=== PATIENT | female | born 1975 | race Two or more races ===

== ENCOUNTER 2025-02-11 17:39 | Inpatient (IN) | payer MEDICAID, SELFPAY ==
[2025-02-11 18:03] VITALS: BP 112/77; PULSE 97; RESP 18; TEMP 37.1; O2SAT 99; BMI 38.2
--- NOTE | 2025-02-11 18:05 | XR_ITS ---
Examination: CT brain head without contrast. 2-D sagittal coronal reconstructions Date and time of exam:February 11, 2025 1851 hrs. Indications: Onset headaches vomiting today CTDI: vol (mGy):48.3 DLP: (mGycm):921 Technique: Multiple CT axial sections of the brain have been obtained, 5 mm slice thickness. Contrast has not been administered. 2-D sagittal, coronal reconstructions have been obtained Low dose protocols were performed. One or more of the following dose reduction techniques were used; automated exposure control, adjustment of the mA and/or KV according to patient size, use of iterative reconstruction technique. Findings: No significant ventricular enlargement. Intra-axial or extra-axial hemorrhage density is not seen. No mass effect or midline shift Basal cisterns are not remarkable. Fourth ventricle is midline. Cranial vault intact. Impression: Negative for acute hemorrhage, mass effect or midline shift Advise clinical correlation follow-up accordingly
--- NOTE | 2025-02-11 18:05 | XR_ITS ---
Examination: CT abdomen and pelvis without contrast. Coronal 3-D reconstructions. Sagittal 2-D reconstructions. Date and time of exam:February 11, 2025 1858 hrs. Indications: Onset right flank pain today, history kidney stones CTDI: vol (mGy): 16.1 DLP: (mGycm): 979 Technique: Axial images of the abdomen have been obtained, 3 mm slice thickness Intravenous contrast material has not been administered. Low dose protocols were performed. One or more of the following dose reduction techniques were used; automated exposure control, adjustment of the mA and/or KV according to patient size, use of iterative reconstruction technique. Findings: No focal liver or splenic lesion No gallstones No pancreatic or adrenal mass Multiple bilateral renal calculi, the largest 7 mm in the lower pole right kidney Significant scarring both kidneys, mild wall thickening right renal pelvis suspected urinary tract infection No ureteral calculi Normal appendix No bowel obstruction No diverticulitis Anteverted uterus with multiple uterine fundal masses No bladder mass or bladder calculi Fat-containing left femoral hernia Impression: Multiple bilateral nonobstructing renal calculi, no hydronephrosis or ureteral calculi Significant scarring both kidneys Suspicious for right urinary tract infection Normal appendix Multiple uterine fundal masses, recommend pelvic sonography follow-up
--- NOTE | 2025-02-11 18:06 | PD.EDRME ---
Rapid Medical Screening Exam E Arrival date/time: 02/11/25 17:39 49-year-old female presents to the emergency department for complaint of headache and abdominal pain patient reports that she has surgery scheduled for next month for her kidney stones Chief Complaint: Headache Vital signs: Vital Signs Temperature 98.8 F 02/11/25 18:03 Pulse Rate 97 02/11/25 18:03 Respiratory Rate 18 02/11/25 18:03 Blood Pressure 112/77 02/11/25 18:03 Pulse Oximetry (%) 99 02/11/25 18:03 Oxygen Delivery Method Room Air 02/11/25 18:03
[2025-02-11 18:55] LABS: Collection Type, Urine Clean Catch; WBC,Urine 0 /hpf (0-5)
[2025-02-11 19:02] LABS: Basophils # (Auto) 0.1 Thou/mm3 (0.0-0.2); Basophils % (Auto) 1 % (0-2.5); Eosinophils # (Auto) 0.2 Thou/mm3 (0.0-0.5); Eosinophils % (Auto) 1 % (0-10); Hematocrit 27.5 % (36.0-46.0); Immature Granulocytes % (Auto) 1 % (0-0); Immature Granulocytes Auto 0.08 Thou/mm3 (0.00-0.00); Lymphocytes # (Auto) 1.9 Thou/mm3 (1.0-4.8); Lymphocytes % (Auto) 11 % (10-50); Mean Corpuscular HGB Conc 30.2 g/dl (31.0-37.0); Mean Corpuscular Hemoglobin 21.7 pg (25.0-35.0); Mean Corpuscular Volume 72 fL (80-100); Monocytes # (Auto) 0.7 Thou/mm3 (0.0-0.8); Monocytes % (Auto) 5 % (0-12); Neutrophils # (Auto) 13.4 Thou/mm3 (1.8-7.7); Neutrophils % (Auto) 82 % (37-80); Nucleated Red Blood Cell % 0 /100 WBC (0); Platelet Count 471 Thou/mm3 (140-440); Red Blood Count 3.83 Miln/mm3 (4.00-5.20); White Blood Count 16.4 Thou/mm3 (3.6-11.0)
[2025-02-11 19:24] LABS: Hemoglobin 8.3 g/dL (12.0-16.0)
[2025-02-11 19:42] LABS: Bilirubin,Urine Negative (Negative); Blood,Urine 2+ (Negative); Clarity,Urine Clear (Clear/Hazy); Color,Urine Lt-Yellow (Lt Yel-Yel); Culture Indicated,Urine Not Indicated; Glucose, Urine 4+ (Negative); Ketones,Urine Negative (Negative); Leukocyte Esterase,Urine Negative (Negative); Nitrite,Urine Negative (Negative); Protein,Urine Negative (Neg - Trace); RBC,Urine 3 /hpf (0-3); Specific Gravity,Urine 1.025 (1.001-1.035); Squamous Epithelial Cell,Urine 3 /hpf (0-5); Urobilinogen,Urine Negative mg/dL (0.0-1.0)
[2025-02-11 19:50] LABS: Alanine Aminotransferase 11 U/L (10-49); Albumin, Serum 4.3 gm/dL (3.5-5.0); Albumin/Globulin Ratio 1.2 (1.2-2.2); Alkaline Phosphatase 105 U/L (46-116); Anion Gap 8 (7-16); Aspartate Amino Transferase 12 U/L (0-34); BUN/Creatinine Ratio 16 Ratio (12-20); Bilirubin,Total 0.3 mg/dL (0.3-1.2); Blood Urea Nitrogen 21 mg/dL (9-23); Calcium 9.4 mg/dL (8.3-10.6); Calcium (Corrected) 9.4 mg/dL (8.5-10.1); Carbon Dioxide 24.8 mMol/L (20.0-31.0); Chloride 96 mMol/L (98-107); Creatinine (Component) 1.3 mg/dL (0.6-1.3); Estimated Creatinine Clearance 58.4 mL/min (>60); Globulin 3.6 gm/dL (2.3-3.5); Glucose 332 mg/dL (74-106); Lipase 66 U/L (12-53); Osmolality,Calculated 274 (275-295); Potassium 4.6 mMol/L (3.4-5.1); Sodium 129 mMol/L (136-145); Total Protein 7.9 gm/dL (5.7-8.2); eGFR 50 See Note
--- NOTE | 2025-02-11 21:45 | PD.EDRME ---
Rapid Medical Screening Exam RME Arrival date/time: 02/11/25 17:39 02/11/25 17:39 49-year-old female presents to the emergency department for complaint of headache and abdominal pain patient reports that she has surgery scheduled for next month for her kidney stones Chief Complaint: Headache Time Seen by Provider: 02/11/25 21:45 Vital signs: Vital Signs Temperature 98.8 F 02/11/25 18:03 Pulse Rate 97 02/11/25 18:03 Respiratory Rate 18 02/11/25 18:03 Blood Pressure 112/77 02/11/25 18:03 Pulse Oximetry (%) 99 02/11/25 18:03 Oxygen Delivery Method Room Air 02/11/25 18:03 RME Narrative: 02/11/25 17:39 49-year-old female presents to the emergency department for complaint of headache and abdominal pain patient reports that she has surgery scheduled for next month for her kidney stones
--- NOTE | 2025-02-11 23:35 | PD.EDHA ---
ED Headache RME/HPI General Chief Complaint: Headache Stated Complaint: HEAD AND RIGHT KIDNEY PAIN X AM Time Seen by Provider: 02/11/25 21:45 Arrival date/time: 02/11/25 17:39 RME / HPI RME / HPI Narrative: 02/11/25 17:39 49-year-old female presents to the emergency department for complaint of headache and abdominal pain patient reports that she has surgery scheduled for next month for her kidney stones ------- Dr. Morales?s Main ED Evaluation: 49yo female presents to the ED for a chief complaint of intermittent diffuse upper abdominal pain x 1 week. Patient states her pain became significantly worse today at 1600, describing her pain as burning and throbbing in nature. Patient reports associated dizziness, seeing spots , 6 emetic episodes, and a headache. She denies any diarrhea, fever, chills or any otehr associated symptoms. She denies any history of similar symptoms. PSH includes . Patient states she is scheduled for a procedure with Dr. Noonan next month to have her kidney stones removed. Related Data Allergies Allergy/AdvReac Type Severity Reaction Status Date / Time aspirin Allergy Intermediate RASH Verified 02/11/25 17:41 Review of Systems Review of Systems Systems Reviewed: All systems reviewed, normal except as documented Past Medical History Social History SMOKING STATUS: Never smoker ED Exam Narrative Physical exam: GENERAL APPEARANCE: alert and oriented x 4, well-developed, well-nourished, no acute distress VITALS: All vitals were reviewed and the pulse ox is 99% on room air, which is normal according to my interpretation. HEENT: Normocephalic, atraumatic; pupils equal, round, reactive to light; EOMI; mucous membranes pink, moist; oropharynx clear NECK: Supple LUNGS: CTABL; no wheezes, no rales, no rhonchi HEART: Regular rate, regular rhythm; normal S1, S2; no murmurs ABDOMEN: non distended; normal BS; soft, [id number] epigastric and RUQ tenderness, positive Tran sign, no rigidity, no guarding, no rebound; no masses, no organomegaly, no hernia BACK: no CVA tenderness EXTREMITIES: atraumatic; no edema NEUROLOGIC: awake; alert and oriented x4; cranial nerves II-XII grossly intact; no focal sensory or motor deficits PSYCHIATRIC: appropriate mood and affect SKIN: warm, dry, normal color; no rashes Course Quality Measures none Orders Category Date Time Status [employer] Q4H START 00 Care 02/11/25 23:38 Active Continuous Pulse Oximetry NOW Care 02/11/25 23:38 Completed EKG (ED ONLY) *Do not use* NOW Care 02/11/25 23:40 Completed IV [Insert IV] STAT Care 02/11/25 23:[address] abdomen pelvis wo con Stat Exams 02/11/25 18:[address] head/brain wo con Stat Exams 02/11/25 18:05 Completed EKG (ED Only) Stat Exams 02/11/25 23:40 Draft US gall bladder Stat Exams 02/12/25 00:21 Taken XR chest 1V portable Stat Exams 02/11/25 23:38 Completed CBC Stat Lab 02/11/25 18:45 Completed Comprehensive Metabolic Panel Stat Lab 02/11/25 18:45 Completed Lipase Stat Lab 02/11/25 18:45 Completed UA, C/S IF [Urinalysis, C/S if Indicated] Stat Lab 02/11/25 18:45 Completed HYDROmorphone INJ [Dilaudid Inj] Med 02/11/25 23:45 Active 0.5 mg IVP PRN Ondansetron Inj [Zofran Inj] Med 02/11/25 23:38 Discontinued 4 mg IV X1 ONE Piper/Tazo Inj [Zosyn Inj] 4.5 gm Med 02/12/25 04:12 Active Sodium Chloride 0.9% (Pop) [NS 0.9% mini bag] 100 ml IV X1 Sodium Chloride 0.9% 1000 ml [Ns] 1,000 ml Med 02/11/25 23:38 Discontinued IV 999 mls/hr Vital Signs Vital signs: Vital Signs Temperature 98.8 F 02/11/25 18:03 Pulse Rate 97 02/11/25 18:03 Respiratory Rate 18 02/11/25 18:03 Blood Pressure 112/77 02/11/25 18:03 Pulse Oximetry (%) 99 02/11/25 18:03 Oxygen Delivery Method Room Air 02/11/25 18:03 Headache MDM Narrative MDM Narrative:: Scribe Attestation: 02/11/25 - Marietta Brand am scribing for and in the presence of Dr. Morales. 0417: Discussed case with the resident physician, attending Dr. Valentino from Hospitalist service regarding admission. Discussed patients ED course, exam findings, labs, and radiology results. The Hospitalist agrees to accept the patient for admission. Patient data External records reviewed:: [facility] previous records (Per chart review, patient has no previous ED visits or admissions to this facility.) Clinical information provided by:: patient Social determinants that could affect healthcare access:: none Patient has the following chronic illnesses:: none How is presenting disease/condition affected by chronic disease/condition?: no chronic disease Evaluation data The following diagnostics were reviewed and interpreted by me:: lab results and radiology exam(s) Lab and/or radiology exams considered but not ordered:: none Interpretation Summary: WBC count is elevated at 16.4, HnH is 8.3/27.5, Sodium is 129, Glucose is 332, Lipase is 66, UA shows 4+ glucose, according to my interpretation. EKG done at 2353, NSR, rate of 84, normal axis, no ectopy, no acute ischemia, according to my interpretation. [facility] Report Signed Patient: HEIDI SYED Med. Record#: [id number] Birthdate: 1975 Age/Sex: 49 / F Location: [facility] Attending Dr: Ordering Physician: John Morales MD Date of Service: 02/11/25 Procedure(s): XR chest 1V portable Accession Number(s): [id number] cc: Artur Contreras MD; PAYTON HODGES; John Morales MD~ Examination: AP chest single view Technique: AP portable upright chest single view Exam date and time: February 11, 2025, 11:46 PM Indications: Abdominal pain epigastric pain today Findings: Normal heart size. Minimal ectasia thoracic aorta. No pneumonia or pulmonary edema. The osseous structures are intact Impression: No pneumonia or pulmonary edema Dictated By: Artur Contreras MD Signed By: <Electronically signed by Artur Contreras MD in OV> 02/11/25 2359 [facility] Report Signed Patient: HEIDI SYED Med. Record#: [id number] Birthdate: 1975 Age/Sex: 49 / F Location: [facility] Attending Dr: Ordering Physician: Heriberto Navas NP, NP Date of Service: 02/11/25 Procedure(s): CT head/brain wo con Accession Number(s): [id number] cc: Eloise CASTANON),Heriberto SOLIMAN; Artur Contreras MD; PAYTON HODGES~ Examination: CT brain head without contrast. 2-D sagittal coronal reconstructions Date and time of exam:February 11, 2025 1851 hrs. Indications: Onset headaches vomiting today CTDI: vol (mGy):48.3 DLP: (mGycm):921 Technique: Multiple CT axial sections of the brain have been obtained, 5 mm slice thickness. Contrast has not been administered. 2-D sagittal, coronal reconstructions have been obtained Low dose protocols were performed. One or more of the following dose reduction techniques were used; automated exposure control, adjustment of the mA and/or KV according to patient size, use of iterative reconstruction technique. Findings: No significant ventricular enlargement. Intra-axial or extra-axial hemorrhage density is not seen. No mass effect or midline shift Basal cisterns are not remarkable. Fourth ventricle is midline. Cranial vault intact. Impression: Negative for acute hemorrhage, mass effect or midline shift Advise clinical correlation follow-up accordingly Dictated By: Artur Contreras MD Signed By: <Electronically signed by Artur Contreras MD in OV> 02/11/251913 [facility] Report Signed Patient: HEIDI SYED Med. Record#: [id number] Birthdate: 1975 Age/Sex: 49 / F Location: [facility] Attending Dr: Ordering Physician: Heriberto Navas NP, NP Date of Service: 02/11/25 Procedure(s): CT abdomen pelvis wo con Accession Number(s): [id number] cc: Eloise CASTANON)Heriberto NP; Artur Contreras MD; PAYTON HODGES~ Examination: CT abdomen and pelvis without contrast. Coronal 3-D reconstructions. Sagittal 2-D reconstructions. Date and time of exam:February 11, 2025 1858 hrs. Indications: Onset right flank pain today, history kidney stones CTDI: vol (mGy): 16.1 DLP: (mGycm): 979 Technique: Axial images of the abdomen have been obtained, 3 mm slice thickness Intravenous contrast material has not been administered. Low dose protocols were performed. One or more of the following dose reduction techniques were used; automated exposure control, adjustment of the mA and/or KV according to patient size, use of iterative reconstruction technique. Findings: No focal liver or splenic lesion No gallstones No pancreatic or adrenal mass Multiple bilateral renal calculi, the largest 7 mm in the lower pole right kidney Significant scarring both kidneys, mild wall thickening right renal pelvis suspected urinary tract infection No ureteral calculi Normal appendix No bowel obstruction No diverticulitis Anteverted uterus with multiple uterine fundal masses No bladder mass or bladder calculi Fat-containing left femoral hernia Impression: Multiple bilateral nonobstructing renal calculi, no hydronephrosis or ureteral calculi Significant scarring both kidneys Suspicious for right urinary tract infection Normal appendix Multiple uterine fundal masses, recommend pelvic sonography follow-up Dictated By: Artur Contreras MD Signed By: <Electronically signed by Artur Contreras MD in OV> 02/11/251916 [facility] Preliminary Report Draft Patient: HEIDI SYED [facility]. Record#: [id number] Birthdate: 1975 Age/Sex: 49 / F Location: [facility] Attending Dr: Ordering Physician: Date of Service: Procedure(s): Accession Number(s): cc: ~ Ultrasound Abdomen. February 12, 2025 0119 hours Clinical history: RUQ and epigastric pain Technique: Grayscale and color flow images of the abdomen are provided. Hepatic and portal veins were also imaged with color flow images. Comparison: No prior study is available for comparison. Findings: The liver is normal in echogenicity. Hepatopetal flow in main portal vein. No intrahepatic biliary ductal dilatation. Gallbladder wall thickening up to 4.9 mm. No gallbladder sludge or stones. No pericholecystic fluid is demonstrated. The common bile duct is normal in caliber at 3.9 mm. The pancreas is not visualized due to bowel gas. The inferior vena cava to the extent visualized is patent. Impression: Findings suggestive of acute acalculous cholecystitis. Suggest follow-up with HIDA scan, if clinically indicated. Report Electronically Signed By: Mitchell Silverman 02/12/2025 2:18:39 AM Medications / Prescriptions Medications or Prescriptions considered but not ordered:: none Medication administrations:: Medication Administration History Hydromorphone HCl (Hydromorphone Inj 2 Mg/Ml Vial) 0.5 mg IVP PRN WILL Stop: 02/16/25 23:44 Last Admin: 02/12/25 00:00 Dose: 0.5 mg Documented By: VIELKA Piperacillin Sod/Tazobactam (Sod 4.5 gm/ Sodium Chloride) 100 mls @ 200 mls/hr IV X1 ONE Stop: 02/12/25 04:41 Discontinued Medications Sodium Chloride (Ns) 1,000 mls @ 999 mls/hr IV .Q1H1M ONE Stop: 02/12/25 00:38 Last Infusion: 02/12/25 01:39 Dose: Infused Documented By: Admin: 02/11/25 23:59 Dose: 999 mls/hr Documented By: VIELKA Ondansetron HCl (Ondansetron Inj 2 Mg/Ml Inj 2 Ml) 4 mg IV X1 ONE; Protocol Stop: 02/11/25 23:39 Last Admin: 02/11/25 23:59 Dose: 4 mg Documented By: VIEKLA see above Consultations Consultation(s) initiated? (list below): Yes Diagnosis Differential diagnosis headache: other (gastritis, pancreatitis, cholecystitis, cholelithiasis) Most likely diagnosis given after review of the tests above:: see clinical impression below Admission Indicated Admission indicated?: indicated Admission Request Was there a request for admission?: Yes Admission Attestation Admission request attestation: Discussed case with [] from Hospitalist service regarding admission. Discussed patients ED course, exam findings, labs, and radiology results. The Hospitalist [agrees,declines] to accept the patient for admission. Disposition Plan Disposition Plan: Admit Discharge Plan Plan Patient Disposition: Admit Acute Care w/in Hospital Prescriptions/Referrals Referrals: Payton Hodges [Primary Care Provider] - In 1 week Problem List Clinical Impression: Acute acalculous cholecystitis Patient/Caregiver Discharge Instructions Print Language: Icelandic Stand Alone Forms: [facility] [employer]., Patient Portal Info Letter
[2025-02-11 23:38] VITALS: BP 129/83; PULSE 93; RESP 18; TEMP 36.8; O2SAT 100
--- NOTE | 2025-02-11 23:38 | XR_ITS ---
Examination: AP chest single view Technique: AP portable upright chest single view Exam date and time: February 11, 2025, 11:46 PM Indications: Abdominal pain epigastric pain today Findings: Normal heart size. Minimal ectasia thoracic aorta. No pneumonia or pulmonary edema. The osseous structures are intact Impression: No pneumonia or pulmonary edema
--- NOTE | 2025-02-11 23:40 | EKG_ITS ---
[facility] Test Date: 2025-02-11 Pat Name: HEIDI SYED Department: Room: - Gender: Female [employer]: : 1975 Requested By: John Ortiz Order Number: [id number] Reading MD: John Ortiz Measurements Intervals [place] Rate: 84 P: 26 CT: 164 QRS: 21 QRSD: 81 T: 34 QT: 349 QTc: 414 Interpretive Statements SINUS RHYTHM LOW QRS VOLTAGE IN PRECORDIAL LEADS [QRS DEFLECTION < 1.0 mV IN CHEST LEADS] No previous ECG available for comparison /store/S0/[id number].pdf
[2025-02-11 23:51] VITALS: PULSE 86
[2025-02-11] MEDS: ONDANSETRON INJ 2 MG/ML INJ 2 ML 4 MG IV (23:59)
[2025-02-11] MEDS: SODIUM CHLORIDE 0.9% 1000 ML 1,000 ML 999 ML IV (23:59)
[2025-02-12] VITALS (9 sets, daily range): BP systolic 113–175; BP diastolic 71–96; PULSE 76–89; RESP 16–97; TEMP 36.2–37.1; O2SAT 95–99; BMI 38.2
[2025-02-12] MEDS: HYDROmorphone INJ 2 MG/ML VIAL 0.5 MG IVP
--- NOTE | 2025-02-12 00:21 | XR_ITS ---
Examination: Abdomen sonogram, Limited Date and time of exam: February 12, 2025 0119 hours INDICATIONS: Right upper abdominal pain beginning one month ago Technique: Real-time butler scale transabdominal sonographic images of the upper abdomen obtained. Findings: Negative for gallstones Gallbladder wall 0.49 cm no edema Common bile duct 0.40 cm Pancreas obscured by bowel gas Liver 16.8 cm no focal liver lesions Normal hepatopedal portal venous flow Patent IVC IMPRESSION: Negative for cholelithiasis Abnormal thickening of the gallbladder wall, recommend HIDA scan or MRCP follow-up to confirm cholecystitis
--- NOTE | 2025-02-12 02:19 | PRELIM_ITS ---
Ultrasound Abdomen. February 12, 2025 0119 hours Clinical history: RUQ and epigastric pain Technique: Grayscale and color flow images of the abdomen are provided. Hepatic and portal veins were also imaged with color flow images. Comparison: No prior study is available for comparison. Findings: The liver is normal in echogenicity. Hepatopetal flow in main portal vein. No intrahepatic biliary ductal dilatation. Gallbladder wall thickening up to 4.9 mm. No gallbladder sludge or stones. No pericholecystic fluid is demonstrated. The common bile duct is normal in caliber at 3.9 mm. The pancreas is not visualized due to bowel gas. The inferior vena cava to the extent visualized is patent. Impression: Findings suggestive of acute acalculous cholecystitis. Suggest follow-up with HIDA scan, if clinically indicated. Report Electronically Signed By: Mitchell Silverman 02/12/2025 2:18:39 AM [EST]
[2025-02-12] MEDS: PIPER/TAZO INJ 4.5 GM in SODIUM CHLORIDE 0.9% (POP) 100 ML IV (05:47)
--- NOTE | 2025-02-12 06:01 | PD.RESHP ---
Documentation for date of: 02/12/25 [facility] History of Present Illness History of present illness: The patient is a 49-year-old female with a previous medical history of hypertension, type 2 diabetes, nephrolithiasis who came into the ED due to headache and abdominal pain that started yesterday. She reports with she was at work, she turned her body and started experiencing left-sided flank pain that was radiating to the right side. She also reported feeling fever, chills and had vomited 6 times since her pain begins, denies blood in the vomit. She also reports feeling constipated, did not had a bowel movement in few days. She also endorses dysuria. She reports that she has a kidney operation planned with urologist and had a stent placed before and her kidney. ED course: Blood pressure 112/77, heart rate 97, afebrile, saturating well on room air. Labs showed WBC count 16.4, hemoglobin 8.3, platelet 471, sodium 129, potassium 4.6, chloride 96, carbon dioxide 24.8, BUN 21, creatinine 1.3, EGFR 50, glucose 332, plasma osmolality 274. UA was positive for 4+ glucose, 2+ blood. Abdomen pelvis CT showed multiple bilateral nonobstructing renal calculi, no hydronephrosis or ureteral calculi. Significant scarring of the both kidneys, suspicious for right urinary tract infection and multiple uterine fundal masses. Head CT was negative for acute findings. Chest x-ray was negative for pneumonia or pulmonary edema. EKG showed sinus rhythm. Gallbladder ultrasound showed findings suggestive of acute acalculous cholecystitis. In the ED she received ondansetron 4 mg x 1, 1 L of sodium chloride, hydromorphone 0.5 mg x 1, Zosyn 4.5 g once. Social history: Denies smoking, alcohol intake and recreational substances. Surgical history: Denies Home medications: Patient reports that she is taking Janumet, Jardiance, hydralazine, atorvastatin, losartan, Ozempic. Denies taking blood thinners. Allergies: Aspirin?rash and shortness of breath. Patient is going to be admitted for UTI and acalculous cholecystitis. Review of Systems Review of Systems Systems Reviewed: All systems reviewed, normal except as documented Past Medical History Past Medical History CARDIAC: Positive Hypotension GENITOURINARY: Positive Kidney Stones ENDOCRINE: Positive Diabetes Mellitus Type 2 Social History SMOKING STATUS: Never smoker Exam Vital Signs Temp Pulse Resp BP Pulse Ox O2 Del Method 98.7 F 83 18 130/81 97 Room Air 02/12/25 04:14 02/12/25 04:14 02/12/25 04:14 02/12/25 04:14 02/12/25 04:14 02/11/25 23:38 Narrative Exam Physical Exam General: Awake and in no acute distress. Conversational and non-toxic appearing. HEENT: Normocephalic, atraumatic, mucous membranes moist. Heart: Regular rate and rhythm, no murmurs. Lungs: Clear to auscultation with no wheezing or crackles. Abdomen: Soft, distended due to habitus, bilateral flank pain, negative Tran sign, positive bowel sounds. ?No guarding or rebound tenderness. Neurologic: Alert and oriented x3, no gross neurological deficit, and patient able to move all 4 extremities. Extremities: No edema. Skin: No rash or ecchymoses. Results: Labs 02/12/25 06:24 02/12/25 06:24 Labs: Short CBC 02/11/25 Range/Units 18:45 WBC 16.4 H (3.6-11.0) Thou/mm3 Hgb 8.3 L (12.0-16.0) g/dL Hct 27.5 L (36.0-46.0) % Plt Count 471 H (140-440) Thou/mm3 BMP 02/11/25 18:45 Sodium 129 L Potassium 4.6 Chloride 96 L Carbon Dioxide 24.8 BUN 21 Creatinine 1.3 Glucose 332 H Calcium 9.4 Liver Function 02/11/25 Range/Units 18:45 Total Bilirubin 0.3 (0.3-1.2) mg/dL AST 12 (0-34) U/L ALT 11 (10-49) U/L Alkaline Phosphatase 105 (46-116) U/L Albumin 4.3 (3.5-5.0) gm/dL Urine 02/11/25 Range/Units 18:45 Urine Color Lt-Yellow (Lt Yel-Yel) Urine Clarity Clear (Clear/Hazy) Urine pH 6.0 (5.0-7.0) Ur Specific [place] 1.025 (1.001-1.035) Urine Protein Negative (Neg - Trace) Urine Glucose (UA) 4+ A (Negative) Quality Measures Quality Measures VTE prophylaxis Medications Home Medications and Allergies Home Medications ?Medication ?Instructions ?Recorded ?Confirmed ?Type atorvastatin 40 mg tablet 40 mg PO QDAY 02/12/25 02/12/25 History empagliflozin 25 mg tablet 25 mg PO QDAY 02/12/25 02/12/25 History (Jardiance) loratadine 10 mg tablet 10 mg PO QDAY PRN allergy symptoms 02/12/25 02/12/25 History losartan 100 1 tab PO QDAY 02/12/25 02/12/25 History mg-hydrochlorothiazide 25 mg tablet omeprazole 20 mg capsule,delayed 20 mg PO QDAY 02/12/25 02/12/25 History release ondansetron HCl 4 mg tablet 4 mg PO Q8H PRN nausea and vomiting 02/12/25 02/12/25 History semaglutide 0.25 mg or 0.5 mg (2 0.25 mg subcut QWEEK 02/12/25 02/12/25 History mg/3 mL) subcutaneous pen injector (Ozempic) sitagliptin phos 100 mg-metformin 1 tab PO QDAY 02/12/25 02/12/25 History ER 1,000 mg tablet,extend rel 24h mp (Janumet XR) Allergies Allergy/AdvReac Type Severity Reaction Status Date / Time aspirin Allergy Intermediate RASH Verified 02/11/25 17:41 Visit Medications Acetaminophen (Acetaminophen 325 Mg Tablet) 650 mg PO Q6H PRN PRN Reason: Fever >100.3 or pain 1-3 Stop: 03/14/25 05:38 Dextrose (Dextrose 50%-Water Inj 50 Ml Syringe) 25 ml IV Q15MIN PRN PRN Reason: BG 50-70 responsive npo pt Stop: 03/14/25 05:42 Dextrose (Dextrose 50%-Water Inj 50 Ml Syringe) 50 ml IV Q15MIN PRN PRN Reason: BG <50 OR BG <70 & pt unresponsive Stop: 03/14/25 05:42 Glucagon (Glucagon Inj 1 Mg Vial) 1 mg IM Q15MIN PRN PRN Reason: BG <70, and no IV access Heparin Sodium (Porcine) (Heparin Sod Inj 5000 Unit/Ml Vial) 5,000 unit SC Q8HR WILL Stop: 02/26/25 05:59 Hydromorphone HCl (Hydromorphone Inj 2 Mg/Ml Vial) 0.5 mg IVP Q4HR PRN PRN Reason: pain 7-10 Stop: 02/17/25 05:38 Sodium Chloride (Ns) 1,000 mls @ 100 mls/hr IV .Q10H WILL Stop: 03/14/25 05:46 Piperacillin/Tazobactam/Dextrose (Zosyn) 50 mls @ 100 mls/hr IV Q6HR [facility] Stop: 02/19/25 09:59 Insulin Glargine (Insulin Glargine (Lantus) 5 Unit/0.05 Ml (Per 5 Units)) 19 unit SC QDAY WILL Stop: 03/14/25 05:44 Insulin Human Lispro (Insulin Lispro (Admelog) 1 Unit/0.01 Ml Unit) 0 unit SC Q6HR WILL; Protocol Stop: 03/14/25 05:59 Ondansetron HCl (Ondansetron Inj 2 Mg/Ml Inj 2 Ml) 4 mg IV Q6H PRN; Protocol PRN Reason: NAUSEA OR VOMITING Stop: 03/14/25 05:38 Oxycodone/Acetaminophen (Oxycodone/Apap 5/325 Tablet) 1 tab PO Q6H PRN PRN Reason: PAIN SCALE 4-6 (Moderate Stop: 02/17/25 05:38 Sennosides (Senna Tablet) 1 tab PO QDAY PRN; Protocol PRN Reason: constipation Stop: 03/14/25 05:38 Discontinued Medications Hydromorphone HCl (Hydromorphone Inj 2 Mg/Ml Vial) 0.5 mg IVP PRN [facility] Stop: 02/16/25 23:44 Last Admin: 02/12/25 00:00 Dose: 0.5 mg Sodium Chloride (Ns) 1,000 mls @ 999 mls/hr IV .Q1H1M ONE Stop: 02/12/25 00:38 Last Infusion: 02/12/25 01:39 Dose: Infused Piperacillin Sod/Tazobactam (Sod 4.5 gm/ Sodium Chloride) 100 mls @ 200 mls/hr IV X1 ONE Stop: 02/12/25 04:41 Last Admin: 02/12/25 05:47 Dose: 200 mls/hr Piperacillin/Tazobactam/Dextrose (Zosyn) 50 mls @ 100 mls/hr IV Q6HR [facility] Stop: 02/19/25 05:46 Ondansetron HCl (Ondansetron Inj 2 Mg/Ml Inj 2 Ml) 4 mg IV X1 ONE; Protocol Stop: 02/11/25 23:39 Last Admin: 02/11/25 23:59 Dose: 4 mg Assessment & Plan Plan The patient is a 49-year-old female with a previous medical history of hypertension, type 2 diabetes, nephrolithiasis who came into the ED due to headache and abdominal pain that started yesterday. Patient is going to be admitted for UTI and acalculous cholecystitis. #Complex UTI Patient has a history of nephrolithiasis, has a planned operation (lithotripsy, possible) with urologist. She also has a history of taking Jardiance. She reports feeling fevers, chills, nausea, vomiting. Labs show leukocytosis. She received 1 L of fluids in the ED. Plan: ? Zosyn 3.375 every 6 hours ? Urine cultures ordered ? Blood cultures ordered ? Maintenance fluids ?Jardiance on hold for now #Acalculous cholecystitis Patient's clinical picture is also concerning for possible inflammation of the gallbladder. Ultrasound showed a calculus cholecystitis. Plan: ? Zosyn 3.375 every 6 hours ? Surgery consult ordered ? N.p.o. for now #PEG? Most likely in the setting of poor oral intake. Currently we do not have information regarding her baseline kidney function. Plan: ? Maintenance fluids ? Avoid nephrotoxic agents ? Monitor daily CMP #History of hypertension Plan: ? Home blood pressure medications on hold due to normal blood pressure ? Official med rec is pending #Type 2 diabetes In the ED blood sugar was 332. Plan: ? Glargine 19 units daily ? Insulin sliding scale ? Hypoglycemia protocol #Anemia Hemoglobin 8.3. Could be due to chronic blood loss. Imaging showed multiple masses in the uterus. Plan: ? Iron panel ordered ? Monitor CMP, transfuse if hemoglobin less than 7 Health maintenance: FEN: NPO DVT prophylaxis: heparin sc GI prophylaxis: none Dispo: medsurg CODE STATUS: Full code Plan of care discussed with attending Dr. Valentino. Verónica Fenton MD, PGY 1. Attending Provider Attestation/Addendum I attest that I was physically present for the evaluation, physical examination, lab and imaging review of the patient with the residents. I discussed the case with the residents and agree with the findings and plans of care as documented above. Patient is a 49 years old female with past medical history of hypertension, type 2 diabetes mellitus, nephrolithiasis who presented to the ED with complaint of headache, abdominal pain since yesterday. In the ED, her vitals were within normal limits. Lab results showed WBC of 16.4, hemoglobin 8.3, sodium 129, BUN/creatinine 21/1.3, glucose 332. CT abdomen/pelvis was done, which shows bilateral nonobstructive renal calculi, suspicion for right urinary tract infection and multiple uterine fundal masses. Gallbladder ultrasound was obtained, which states findings suggestive of acute acalculous cholecystitis. Patient stated she has been having left-sided flank pain, feeling feverish with chills, had vomiting. Although patient's urinalysis did not show WBCs, her symptoms and imaging results concerning for UTI. We will admit the patient for management of possible UTI or acalculous cholecystitis. We will start IV Zosyn, obtain culture results and start maintenance fluid. We will also obtain surgery consult. Started on insulin regimen for diabetes. Keiry Valentino MD
[2025-02-12 06:43] LABS: Basophils # (Auto) 0.1 Thou/mm3 (0.0-0.2); Basophils % (Auto) 1 % (0-2.5); Eosinophils # (Auto) 0.3 Thou/mm3 (0.0-0.5); Eosinophils % (Auto) 2 % (0-10); Hematocrit 27.9 % (36.0-46.0); Immature Granulocytes % (Auto) 0 % (0-0); Immature Granulocytes Auto 0.05 Thou/mm3 (0.00-0.00); Lymphocytes # (Auto) 2.1 Thou/mm3 (1.0-4.8); Lymphocytes % (Auto) 17 % (10-50); Mean Corpuscular HGB Conc 30.1 g/dl (31.0-37.0); Mean Corpuscular Hemoglobin 21.8 pg (25.0-35.0); Mean Corpuscular Volume 72 fL (80-100); Monocytes # (Auto) 0.8 Thou/mm3 (0.0-0.8); Monocytes % (Auto) 6 % (0-12); Neutrophils # (Auto) 9.1 Thou/mm3 (1.8-7.7); Neutrophils % (Auto) 73 % (37-80); Nucleated Red Blood Cell % 0 /100 WBC (0); Platelet Count 446 Thou/mm3 (140-440); RDW Standard Deviation 40.3 fL (36.4-46.3); Red Blood Count 3.86 Miln/mm3 (4.00-5.20); White Blood Count 12.4 Thou/mm3 (3.6-11.0)
[2025-02-12 06:44] LABS: Hemoglobin 8.4 g/dL (12.0-16.0)
[2025-02-12 06:53] LABS: Glucose Estimated Average 298 mg/dL (80-131)
[2025-02-12 06:57] LABS: Partial Thromboplastin Time 26.4 Seconds (22.0-36.0)
[2025-02-12] MEDS: SODIUM CHLORIDE 0.9% 1000 ML 1,000 ML 100 ML IV ×2 (06:58→18:45)
[2025-02-12] MEDS: INSULIN LISPRO (AdmeLOG) 1 UNIT/0.01 ML UNIT SC ×2 (06:58→20:40)
[2025-02-12] MEDS: HEPARIN SOD INJ 5000 UNIT/ML VIAL SC ×2 (07:00→21:28)
[2025-02-12] MEDS: ONDANSETRON INJ 2 MG/ML INJ 2 ML 4 MG IV (07:03)
[2025-02-12 07:19] LABS: Alanine Aminotransferase 8 U/L (10-49); Albumin/Globulin Ratio 1.2 (1.2-2.2); Alkaline Phosphatase 101 U/L (46-116); Anion Gap 8 (7-16); Aspartate Amino Transferase 13 U/L (0-34); BUN/Creatinine Ratio 18 Ratio (12-20); Bilirubin,Total 0.4 mg/dL (0.3-1.2); Blood Urea Nitrogen 18 mg/dL (9-23); Calcium 9.1 mg/dL (8.3-10.6); Calcium (Corrected) 9.1 mg/dL (8.5-10.1); Carbon Dioxide 25.9 mMol/L (20.0-31.0); Chloride 104 mMol/L (98-107); Estimated Creatinine Clearance 75.9 mL/min (>60); Globulin 3.4 gm/dL (2.3-3.5); Glucose 234 mg/dL (74-106); Iron 19 mcg/dL (50-170); Osmolality,Calculated 285 (275-295); Percent Iron Saturation 4 % (20-55); Potassium 4.3 mMol/L (3.4-5.1); Sodium 138 mMol/L (136-145); Total Iron Binding Capacity 381 mcg/dL (250-425); Total Protein 7.4 gm/dL (5.7-8.2); Unsaturated Iron Binding 362 (225-295); eGFR > 60 See Note
--- NOTE | 2025-02-12 08:43 | XR_ITS ---
Examination: ANJALI, hepatobiliary radioisotope scan Gallbladder ejection fraction study. Date and time of exam: February 12, 2025 1109 hours INDICATIONS: Hypertension, diabetes, sharp left-sided abdominal pain fever chills this week Technique: 5.8 mCi of 99M Hepatolite administered. Serial imaging then obtained from immediate through 60 minutes. 2.0 mcg selective catheter Kinevac administered for gallbladder ejection fraction study. Findings: Radioisotope activity within the liver is reasonably homogenous. Gallbladder, common bile duct small bowel activity noted Impression: Gallbladder activity Abnormal gallbladder ejection fraction 59%, normal greater than 35%
[2025-02-12] MEDS: ACETAMINOPHEN 325 MG TABLET 650 MG PO ×2 (09:59→19:44)
[2025-02-12] MEDS: PIPER/TAZO 3.375 GM PREMIX 3.375 GM/50 ML BAG IV ×2 (14:19→21:28)
--- NOTE | 2025-02-12 14:25 | PD.RESEVENT ---
Documentation for date of: 02/12/25 Event Note Event Note: Patient was admitted earlier in the day for acalculus cholecystitis. She required further imaging of HIDA scan which showed normal ejection fraction of gallbladder. General surgeon Dr. [place] evaluated the patient and her imaging labs: CT scan of the abdomen showed bilateral renal stones but no ureteral stones. No hydronephrosis. Urinalysis negative for UTI Ultrasound of the gallbladder showed thickening of the gallbladder wall raising the possibility of acalculous cholecystitis. HIDA scan done this afternoon showed normal visualization of the gallbladder ruling out acute cholecystitis Per Dr. Tucker Patient does not require any surgical intervention for gallbladder disease because there is no significant abnormality in the gallbladder. There are no stones and there is no cystic duct obstruction. The thickening of the gallbladder wall seen on ultrasound is nonspecific. She could be treated symptomatically and discharged. Patient will most likely be discharged within 24-48 hours. #?Acalculous cholecystitis #History of hypertension #Type 2 diabetes #Microcytic Anemia This patient care was discussed with my attending Dr. Viri Luna MD PGY-2 Disclaimer: Minor errors in cyber security architect may be present since this note was dictated by speech recognition software.
--- NOTE | 2025-02-12 16:18 | PD.SURCONS ---
HPI Consult details Consult date: 02/12/25 Reason for consultation narrative: The patient was seen in consultation because of acute cholecystitis History of present illness: History of present illness revealed that the patient was in her usual health until yesterday when she started having pain over the abdomen both the left and right side and mostly over the right flank. She has had a history of nephrolithiasis diabetes mellitus urinary tract infection and hypertension. She has had a stent in the past for kidney stones. She denies any hematuria. She vomited 5 6 times yesterday Past Medical History Past Medical History CARDIAC: Positive Hypotension; Negative Congestive Heart Failure RESPIRATORY: Negative Chronic Obstructive Pulmonary Disease (COPD) GENITOURINARY: Positive Kidney Stones; Negative Renal Disease ENDOCRINE: Positive Diabetes Mellitus Type 2; Negative Diabetes Mellitus Type 1 Social History SMOKING STATUS: Never smoker Meds Home Medications and Allergies Home Medications ?Medication ?Instructions ?Recorded ?Confirmed ?Type atorvastatin 40 mg tablet 40 mg PO QDAY 02/12/25 02/12/25 History empagliflozin 25 mg tablet 25 mg PO QDAY 02/12/25 02/12/25 History (Jardiance) loratadine 10 mg tablet 10 mg PO QDAY PRN allergy symptoms 02/12/25 02/12/25 History losartan 100 1 tab PO QDAY 02/12/25 02/12/25 History mg-hydrochlorothiazide 25 mg tablet omeprazole 20 mg capsule,delayed 20 mg PO QDAY 02/12/25 02/12/25 History release ondansetron HCl 4 mg tablet 4 mg PO Q8H PRN nausea and vomiting 02/12/25 02/12/25 History semaglutide 0.25 mg or 0.5 mg (2 0.25 mg subcut QWEEK 02/12/25 02/12/25 History mg/3 mL) subcutaneous pen injector (Ozempic) sitagliptin phos 100 mg-metformin 1 tab PO QDAY 02/12/25 02/12/25 History ER 1,000 mg tablet,extend rel 24h mp (Janumet XR) Allergies Allergy/AdvReac Type Severity Reaction Status Date / Time aspirin Allergy Intermediate RASH Verified 02/11/25 17:41 Exam Vital Signs Temp Pulse Resp BP Pulse Ox O2 Del Method 98.4 F 84 18 127/71 98 Room Air 02/12/25 12:00 02/12/25 12:00 02/12/25 12:00 02/12/25 12:00 02/12/25 12:00 02/12/25 09:12 Narrative Exam Physical examination revealed a slightly obese female who is 5 foot 3 inches tall weighing 216 pounds. Her vital signs are normal Constitutional Constitutional: mild distress Routine Abdominal Exam Comments: Examination abdomen showed negative Tran sign. But he did have some pain on the right flank especially over the costophrenic angle Routine Rectal Exam Comments: Deferred Routine Exam Comments: Deferred Results Results: Laboratory Laboratory Narrative: Patient's laboratory workup showed slight leukocytosis around 12,600. Results: Imaging Imaging narrative: CT scan of the abdomen showed bilateral renal stones but no ureteral stones. No hydronephrosis. Urinalysis negative for UTI Ultrasound of the gallbladder showed thickening of the gallbladder wall raising the possibility of acalculous cholecystitis. HIDA scan done this afternoon showed normal visualization of the gallbladder ruling out acute cholecystitis Assessment & Plan Additional Assessment Additional comments: Impression: Abdominal pain possibly related to her nephrolithiasis Normal functioning gallbladder with no acute cholecystitis No evidence of acalculous cholecystitis Diabetes mellitus Hypertension Plan Plan: Patient does not require any surgical intervention for gallbladder disease because there is no significant abnormality in the gallbladder. There are no stones and there is no cystic duct obstruction. The thickening of the gallbladder wall seen on ultrasound is nonspecific. She could be treated symptomatically and discharged.
[2025-02-13] VITALS: BP 123/79; PULSE 85; RESP 17; TEMP 36.5; O2SAT 96
[2025-02-13 04:00] VITALS: BP 120/76; PULSE 76; RESP 17; TEMP 36.3; O2SAT 96
[2025-02-13] MEDS: SODIUM CHLORIDE 0.9% 1000 ML 1,000 ML 100 ML IV (04:53)
[2025-02-13 05:07] VITALS: PULSE 76; RESP 17; RESP 97
[2025-02-13] MEDS: oxyCODONE/APAP 5/325 TABLET 1 TAB PO (05:32)
[2025-02-13] MEDS: HEPARIN SOD INJ 5000 UNIT/ML VIAL SC (05:33)
[2025-02-13] MEDS: PIPER/TAZO 3.375 GM PREMIX 3.375 GM/50 ML BAG IV (05:40)
[2025-02-13 06:15] LABS: Basophils # (Auto) 0.1 Thou/mm3 (0.0-0.2); Basophils % (Auto) 1 % (0-2.5); Eosinophils # (Auto) 0.2 Thou/mm3 (0.0-0.5); Eosinophils % (Auto) 2 % (0-10); Hematocrit 25.8 % (36.0-46.0); Hemoglobin 7.8 g/dL (12.0-16.0); Immature Granulocytes % (Auto) 0 % (0-0); Immature Granulocytes Auto 0.03 Thou/mm3 (0.00-0.00); Lymphocytes # (Auto) 2.3 Thou/mm3 (1.0-4.8); Lymphocytes % (Auto) 21 % (10-50); Mean Corpuscular HGB Conc 30.2 g/dl (31.0-37.0); Mean Corpuscular Hemoglobin 21.8 pg (25.0-35.0); Mean Corpuscular Volume 72 fL (80-100); Monocytes # (Auto) 0.6 Thou/mm3 (0.0-0.8); Monocytes % (Auto) 5 % (0-12); Neutrophils # (Auto) 7.9 Thou/mm3 (1.8-7.7); Neutrophils % (Auto) 71 % (37-80); Nucleated Red Blood Cell % 0 /100 WBC (0); Platelet Count 439 Thou/mm3 (140-440); RDW Standard Deviation 40.6 fL (36.4-46.3); Red Blood Count 3.57 Miln/mm3 (4.00-5.20); White Blood Count 11.1 Thou/mm3 (3.6-11.0)
[2025-02-13 06:45] LABS: Alanine Aminotransferase 7 U/L (10-49); Albumin, Serum 3.6 gm/dL (3.5-5.0); Albumin/Globulin Ratio 1.2 (1.2-2.2); Alkaline Phosphatase 83 U/L (46-116); Anion Gap 7 (7-16); Aspartate Amino Transferase < 10 U/L (0-34); BUN/Creatinine Ratio 17 Ratio (12-20); Bilirubin,Total 0.3 mg/dL (0.3-1.2); Blood Urea Nitrogen 17 mg/dL (9-23); Calcium 8.2 mg/dL (8.3-10.6); Calcium (Corrected) 8.5 mg/dL (8.5-10.1); Chloride 108 mMol/L (98-107); Estimated Creatinine Clearance 75.9 mL/min (>60); Globulin 3.1 gm/dL (2.3-3.5); Glucose 193 mg/dL (74-106); Osmolality,Calculated 284 (275-295); Potassium 4.1 mMol/L (3.4-5.1); Sodium 139 mMol/L (136-145); Total Protein 6.7 gm/dL (5.7-8.2); eGFR > 60 See Note
[2025-02-13] MEDS: INSULIN LISPRO (AdmeLOG) 1 UNIT/0.01 ML UNIT SC ×2 (07:46→12:03)
[2025-02-13 08:00] VITALS: BP 132/74; PULSE 85; RESP 16; TEMP 36; O2SAT 95
[2025-02-13] MEDS: INSULIN GLARGINE (Lantus) 5 UNIT/0.05 ML (PER 5 UNITS) 19 UNIT SC (08:19)
[2025-02-13 09:06] VITALS: PULSE 96; RESP 18; RESP 98
--- NOTE | 2025-02-13 11:40 | ESDS_ITS ---
Planned Discharge Date 02/13/25 DS: Providers Provider Date of admission: 02/12/25 05:39 Primary care physician: Jose Allison Admitting Provider: Keiry Valentino MD Attending Provider on Admission: Eddy Meredith MD Consults: 02/12/25 05:49 Consult to General Surgery Stat Comment: acalculous cholecystitis Consulting Provider: Donavon Chau Attending Provider on DC: Darren Luna MD Discharging Provider: Darren Luna MD DS: Diagnosis Problem List Completed Was Problem List Reviewed/Reconciled?: Yes Hospital Course Hospital Course Hospital course: Miss Regalado a 49-year-old female patient with significant medical history of hypertension, type 2 diabetes and nephrolithiasis presented to ED on 02/11/25 abdominal pain that started prior day to ED visit. She reported experiencing left-sided flank pain that was radiating to the right side. She also reported feeling fever, chills. Abdomen pelvis CT showed multiple bilateral nonobstructing renal calculi, no hydronephrosis or ureteral calculi. Chest x- ray was negative for pneumonia or pulmonary edema.Gallbladder ultrasound showed findings suggestive of acute acalculous cholecystitis. Patient was admitted for acalculous cholecystitis. HIDA scan showed normall gallbladder activity. General surgeon Dr. Tucker was consulted for possible surgery intervention. Patient was evaluated by general surgeon and no surgery was deemed. Over time patient's symptom improved, had bowel movement and tolerated oral intake. Patient was deemed safe to be discharged home and to follow up with her urologist regarding her kidney stones. Medications: losartan-HCTZ, Ozempic and omeprazole were put on hold as they can lead to acalculus cholecystitis. Patient can resume these medications after seeing her primary care physician. Discharge summary was reviewed with my attending Dr. Meredith. Darren Luna, PGY-2 #Acalculous cholecystitis #History of hypertension #Type 2 diabetes #Microcytic Anemia Status at Discharge Overall status at discharge: patient is progressing back to baseline Time Spent with Patient Time attestation: Total time spent providing and/or coordinating discharge services: Time spent: Greater than 30 minutes Exam Vital Signs Temp Pulse Resp BP Pulse Ox O2 Del Method 96.8 F 96 18 132/74 H 95 Room Air 02/13/25 08:00 02/13/25 09:06 02/13/25 09:06 02/13/25 08:00 02/13/25 08:00 02/13/25 08:00 Narrative Exam General: Awake and in no acute distress. Conversational and non-toxic appearing. HEENT: Normocephalic, atraumatic, mucous membranes moist. Heart: Regular rate and rhythm, no murmurs. Lungs: Clear to auscultation with no wheezing or crackles. Abdomen: Soft, distended due to habitus, mild flank pain, positive bowel sounds. No guarding or rebound tenderness. Neurologic: Alert and oriented x3, no gross neurological deficit, and patient able to move all 4 extremities. Extremities: No edema. Discharge Plan Plan Patient Disposition: HOME (Self Care) Care Plan Goals: Please follow-up with your PCP within 1 week Stop taking your home meds Ozempic, losartan-hydrochlorothiazide and pantoprazole as they can cause acalculous cholecystitis Start taking your new blood pressure medication losartan 100 mg once a day Continue the rest of your home medications Por favor, consulte con robles m?dico de cabecera dentro de eliceo semana. Deje de sandoval bob medicamentos caseros Ozempic, losart?n-hidroclorotiazida y pantoprazol, ya que pueden causar colecistitis aliti?daniela. Comience a sandoval robles nuevo medicamento para la presi?n arterial, losart?n 100 mg eliceo vez al d?a. Contin?e con el louise de bob medicamentos caseros. Prescriptions/Referrals Prescriptions/Med Rec: New losartan 100 mg tablet 100 mg PO QDAY Qty: 30 2RF Continued atorvastatin 40 mg tablet 40 mg PO QDAY Patient Comments: TAKE 1 TABLET BY MOUTH ONCE DAILY Janumet XR 100-1,000 mg tablet, ER multiphase 24 hr 1 tab PO QDAY Patient Comments: TAKE 1 TABLET BY MOUTH ONCE DAILY WITH EVENING MEAL ondansetron HCl 4 mg tablet 4 mg PO Q8H PRN (Reason: nausea and vomiting) Patient Comments: TAKE 1 TABLET BY MOUTH ONCE DAILY for nausea and vomitting Jardiance 25 mg tablet 25 mg PO QDAY Patient Comments: TAKE 1 TABLET BY MOUTH ONCE DAILY loratadine 10 mg tablet 10 mg PO QDAY PRN (Reason: allergy symptoms) Patient Comments: TAKE 1 TABLET BY MOUTH ONCE DAILY NEEDED FOR ALLERGIES Held losartan-hydrochlorothiazide 100-25 mg tablet 1 tab PO QDAY Hold Instructions: Resume on 02/20/25. Hold off until you see your primary care doctor Patient Comments: TAKE 1 TABLET BY MOUTH ONCE DAILY Ozempic 0.25 mg or 0.5 mg (2 mg/3 mL) pen injector 0.25 mg SUBCUT QWEEK Hold Instructions: Resume on 02/20/25. Hold off until seeing your primary care doctor Patient Comments: INJECT 0.25MG SUBCUTANEOUSLY WEEKLY FOR 4 WEEKS, THEN INCREASE TO 0.5MG WEEKLY THEREAFTER. omeprazole 20 mg capsule,delayed release(DR/EC) 20 mg PO QDAY Hold Instructions: Resume on 02/20/25. Restart after seeing primary care physician Patient Comments: TAKE 1 CAPSULE BY MOUTH ONCE DAILY 30 MINUTES BEFORE MORNING MEAL Referrals: Jose Allison [Primary Care Provider] - Patient/Caregiver Discharge Instructions Other Discharge Activity Instructions:: Please follow-up with your PCP within 1 week Stop taking your home meds Ozempic, losartan-hydrochlorothiazide and pantoprazole as they can cause acalculous cholecystitis Start taking your new blood pressure medication losartan 100 mg once a day Continue the rest of your home medications Por favor, consulte con robles m?dico de cabecera dentro de eliceo semana. Deje de sandoval bob medicamentos caseros Ozempic, losart?n-hidroclorotiazida y pantoprazol, ya que pueden causar colecistitis aliti?daniela. Comience a sandoval robles nuevo medicamento para la presi?n arterial, losart?n 100 mg eliceo vez al d?a. Contin?e con el louise de bob medicamentos caseros. Education Materials: Nutrition and MyPlate: Oils, ED Cholecystitis, Presumed, ED High Blood Pressure ... Print Language: Malagasy Stand Alone Forms: Frannie Award Info., Patient Portal Info Letter Discharge Order Discharge Orders: Discharge (Routine); Ordered 02/13/25 Ordered By: Darren Luna Quality Discharge Quality Measures VTE prophylaxis Attestestation Attestation I discussed with and supervised the resident physician who took care of this patient. I agree with the assessment and discharge plan as above.
[2025-02-13 12:00] VITALS: BP 150/81; PULSE 84; RESP 18; TEMP 36.6; O2SAT 96
[2025-02-13] MEDS: POLYETHYLENE GLYCOL 17 GM PACKET 34 GM PO (12:03)
== END 2025-02-13 13:30 | disposition home or self-care (01) ==
LOC: SERX 02-12 04:21 → SERHOLD 02-12 06:35 → S3SX 02-12 09:02
PROVIDERS: Nurse Practitioner Primary Care; Admitting Provider Student in an Organized Health Care Education/Training Program; Emergency Provider Emergency Medicine; PCP Surgery Plastic and Reconstructive Surgery; Visit Provider Internal Medicine
DX: K81.0 Acute cholecystitis (principal); D50.9 Iron deficiency anemia, unspecified; N20.0 Calculus of kidney; I10 Essential (primary) hypertension; E11.9 Type 2 diabetes mellitus without complications; Z87.440 Personal history of urinary (tract) infections; Z87.442 Personal history of urinary calculi; Z88.6 Allergy status to analgesic agent; Z79.899 Other long term (current) drug therapy; Z79.84 Long term (current) use of oral hypoglycemic drugs
CPT/HCPCS: 36415; 70450; 71045; 74176; 76705; 78227; 80053; 81001; 83036; 83540; 83550; 83690; 85025; 85730; 87040; 93005; 96361; 96365; 96375; 99285; A9537; J1643; J1815; J2405; J2543; J2805; J3490; J7030; A9270